=== PATIENT | male | born 1955 | race Caucasian/White ===

== ENCOUNTER 2020-09-28 13:21 | Outpatient (CLI) | payer BC, SELFPAY ==
[2020-09-28 14:21] LABS: Albumin Level 4.6 g/dL (3.5-5.1)
[2020-09-28 14:25] LABS: Hemoglobin A1C 5.4 % (<5.7)
[2020-09-28 16:13] LABS: Urine Cotinine NEGATIVE
== END 2020-09-28 13:22 | disposition home or self-care (01) ==
LOC: ANHSURGERY 13:27
PROVIDERS: PCP Nurse Practitioner Family; Visit Provider Orthopaedic Surgery
DX: Z01.812 Encounter for preprocedural laboratory examination (principal); M17.12 Unilateral primary osteoarthritis, left knee; Z51.81 Encounter for therapeutic drug level monitoring; Z79.899 Other long term (current) drug therapy
CPT/HCPCS: 80307; 82040; 83036; 86850; 86900; 86901; 87081

== ENCOUNTER 2020-10-05 02:08 | Outpatient (CLI) | payer BC, SELFPAY ==
[2020-10-05 18:46] LABS: SARS-CoV-2 RNA PCR Negative
== END 2020-10-05 02:09 | disposition home or self-care (01) ==
LOC: ANHCOVIDDT 02:08
PROVIDERS: Visit Provider Orthopaedic Surgery
DX: Z01.812 Encounter for preprocedural laboratory examination (principal); Z11.59 Encounter for screening for other viral diseases
CPT/HCPCS: 87635; C9803; U0003

== ENCOUNTER 2020-10-08 01:05 | Day surgery (SDC) | payer BC, SELFPAY ==
[2020-09-28 13:47] VITALS: BP 166/90; PULSE 64; RESP 20; TEMP 37.2; O2SAT 99; BMI 28.6
[2020-10-08] VITALS (16 sets, daily range): BP systolic 115–152; BP diastolic 70–91; PULSE 48–84; RESP 14–18; TEMP 36.3–36.8; O2SAT 95–100
--- NOTE | ~2020-10-08 | XR_ITS ---
EXAMINATION: XR knee LT 2V DATE: 10/08/2020 10:32 INDICATION: Total left knee arthroplasty. Postop. TECHNIQUE: 2 views of left knee were obtained. COMPARISON: Left knee radiograph 06/12/2020 FINDINGS: There is a total left knee arthroplasty with patellar resurfacing in near-anatomic alignmen t. No fracture. No periprosthetic lucency to suggest loosening or infection. There is gas in the soft tissues and knee joint, consistent with recent surgery. IMPRESSION: 1. Total left knee arthroplasty in near-anatomic alignment. Reviewed, dictated and finalized at location A. SORTER
--- NOTE | 2020-10-08 06:38 | P.PNAN_ITS ---
Anes - Initial Pre Proc Eval Procedure: Operation Date: 10/08/20 07:30 Proposed Procedures p Left Total Knee Arthroplasty - Asad Aburto MD Date/Time: 10/08/20 06:38 Surgeon: Asad Aburto MD Pre Op Diagnosis: Left Knee OA Patient Data Age: 65 Gender: M Height: 1.75 m Weight: 85.4 kg Last Vital Signs Temp 37.2 C 09/28/20 13:47 Pulse 64 09/28/20 13:47 Resp 20 09/28/20 13:47 BP 166/90 H 09/28/20 13:47 Pulse Ox 99 09/28/20 13:47 Allergies Allergy/AdvReac Type Severity Reaction Status Date / Time No Known Allergies Allergy Verified 10/08/20 06:28 Home Medications Medication Instructions Recorded Confirmed Type atorvastatin 10 mg tablet 10 mg PO HS 05/17/20 10/08/20 History levothyroxine 25 mcg capsule 25 mcg PO QAM 05/17/20 10/08/20 History tamsulosin 0.4 mg capsule 0.4 mg PO HS 05/17/20 10/08/20 History allopurinol 100 mg tablet 100 mg PO HS 08/28/20 10/08/20 History rivaroxaban 10 mg tablet 10 mg PO DAILY #14 tablet 10/03/20 10/08/20 Rx Patient hx anesthesia problems: none Family hx anesthesia problems: none PMFSH Past Medical History Medical History (Updated 10/08/20 @ 06:39 by Zain Subramanian DO) BMI 28.0-28.9,adult Chondrocalcinosis of knee Degenerative arthritis of knee, bilateral Gout Hyperlipidemia Hypothyroidism Osteoarthritis of left knee Family History Family History Mother Cancer Father Cancer Social History Social History Smoking status: Former smoker Second hand tobacco smoke exposure: No Additional smoking assessment comments: STATES 1PK/DAY/5YRS QUIT AGE 24 Alcohol intake: current Drinks per week: 7 Substance use: never Substance use type: does not use Living arrangements: with family 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 Gender identity (if verbalized by the patient): Male Spiritual care concerns: No Anes - Eval Final PreProcedure Day of Procedure 10/08/20 06:38 Patient weight: overweight Heart: regular rate and rhythm Lungs: clear to auscultation and normal air movement Airway: Mallampati scale class 1 Neurological: alert and oriented Last oral intake: >/= 8 hours ASA classification: II Emergent: no Anesthetic plan: proceed Anesthesia type and monitoring: regional spinal and standard monitoring Informed Consent: The patient's anesthetic plan and its attendant risks and benefits were discussed with the patient/family/POA. Questions were solicited and answers provided to the satisfaction of the patient/family/POA.
--- NOTE | 2020-10-08 06:39 | WPDANESPNB ---
Anes - Peripheral Nerve Block Date/Time: 10/08/20 06:39 I have discussed with the patient/family/POA the placement of a peripheral nerve block for post-operative pain management, including associated risks, benefits, complications, and side effects. Alternative methods of post-operative analgesia were detailed. Questions were solicited and answers provided to the satisfaction of the patient/family/POA. Time-Out: A pre-procedural Time-Out was completed immediately before starting the procedure and confirmed: Patient Identification, Site, Procedure, Patient Position and the Availability of Requisite Equipment. Clinical Indications: Acute post-operative pain management requested by the operative surgeon. Nerve Block Insertion Note Anes-nerve block: adductor canal left Patient position: supine Skin prep: chlorhexidine Needle: 22 gauge, stimulating, insulated echogenic needle. Needle length: 80 mm Technique: ultrasound Injectate: bupivacaine 0.5% with epi 5 mcg/ml (30cc) Observations: tolerated well Complications: none Procedure start time:: 722 Procedure end time:: 725
[2020-10-08] MEDS: ACETAMINOPHEN 500 MG TABLET 1000 MG PO (06:43)
[2020-10-08] MEDS: LACTATED RINGERS 1,000 ML 30 ML IV CONT ×3 (06:50→10:55)
[2020-10-08] MEDS: TRANEXAMIC ACID 1,000MG/ISO100 1,000 MG/100 ML BAG 200 MG IVPB (06:53)
--- NOTE | 2020-10-08 07:15 | WPDHPUPDATE1 ---
History and Physical Update Update Date/Time: 10/08/20 07:15 History and Physical has been reviewed, including an updated exam of the patient. There are NO changes in the patient's condition. Risks, benefits, and alternatives have been discussed and questions answered. Patient agrees to proceed with procedure.
[2020-10-08] MEDS: ceFAZolin 2 GM/D5W 50 ML 2 GM/50 ML BAG IVPB (07:46)
[2020-10-08] MEDS: BUPIVACAINE/EPINEPHRINE 0.25% 10 ML VIAL 60 ML INFILTRATE (08:11)
[2020-10-08] MEDS: TRANEXAMIC ACID 1,000 MG/10 ML AMPUL 1000 MG TOPICAL (08:12)
[2020-10-08] MEDS: GENTAMICIN BONE CEMENT REFOBACIN 1 EACH TOPICAL (08:12)
[2020-10-08] MEDS: ceFAZolin SODIUM 1 GM VIAL IV PUSH (09:30)
--- NOTE | 2020-10-08 10:11 | PM.PROC ---
Procedure Note - Detailed Date of procedure: 10/08/20 Pre-op diagnosis: Left Knee OA Post-op diagnosis: same Procedure performed: Left total knee replacement Description of procedure: The patient was identified and proper site identified. In the preop holding area the anesthesia team performed a left sub sartorial block after which the patient was taken to the operating room and transferred to the OR table positioning supine taking care to pad the torso and extremities. After spinal anesthetic was administered a nonsterile tourniquet was placed high on the left thigh. The left lower extremity was prepped and draped in the usual sterile fashion. The extremity was exsanguinated and with the knee flexed tourniquet was inflated to 300 mmHg remaining up for approximately 63 minutes. An anterior midline incision was made and a mid vastus approach was used. Infra and suprapatellar fat pads were excised. Patella was resected leaving 15 mm thickness and prepared for the size 34 round three peg component. Using the intramedullary guide the distal femur was cut in the proper orientation for the size 67.5 femoral component. Using the extramedullary guide the tibia was cut perpendicular to the long axis protecting collateral ligaments and popliteal structures. It was sized to a 71. Flexion and extension gaps were balanced. Trial reduction was undertaken and the weight-bearing line was noted to passed through the center of the joint. Proximal tibia was drilled and punched in the proper orientation for the real component. Trial components were removed. The bone surfaces were washed with pulsatile lavage and dried. The real components were cemented simultaneously. The knee was held in extension and the patella held clamped until the cement had cured. Excess cement was removed from the joint. After trialing it was determined that the 11 mm insert gave full range of motion from 0-125 degrees of flexion and the patella tracked in the femoral groove with no lift-off. After final lavage the joint the real 11 E-poly insert was placed and secured with a locking bar. A Betadine and saline wash was placed into the wound and allowed to sit for approximately 3 minutes and then evacuated. Periarticular tissues were infiltrated with 60 cc of the arthroplasty solution. 1 g of tranexamic acid was left in the wound. The extensor mechanism was repaired with #2 Vicryl suture and 0 looped PDS suture. Subcu was reapproximated with two of strata fix and tissue adhesive for the skin. A sterile dressing was applied. He tolerated the procedure well, was awakened and extubated, transferred to the bed and was taken to recovery area in stable condition. There were no known intraoperative complications. Perioperative antibiotics were administered. Anesthesia: regional and spinal Surgeon: Asad Aburto MD Twine Winder: [place] Estimated blood loss (mL): 100 Tourniquet time (min): 63 Drains: No Packing: No Pathology: none sent Complications: No immediate complications Condition: stable Disposition: PACU
[2020-10-08] MEDS: fentaNYL CITRATE INJ (*CRX) 100 MCG/2 ML VIAL 25 MCG IV PUSH ×4 (10:29→10:40)
[2020-10-08] MEDS: oxyCODONE HCL (*CRX) 5 MG TAB IR PO (11:51)
== END 2020-10-08 16:35 | disposition home or self-care (01) ==
PROVIDERS: Visit Provider Orthopaedic Surgery
PROC: (CPT 27447; principal; 2020-10-08 07:30)
DX: M17.12 Unilateral primary osteoarthritis, left knee (principal); E78.5 Hyperlipidemia, unspecified; E03.9 Hypothyroidism, unspecified; M10.9 Gout, unspecified; Z79.01 Long term (current) use of anticoagulants; Z87.891 Personal history of nicotine dependence
CPT/HCPCS: 27447; 64447; 73560; 97161; A9270; C1713; C1776; J0131; J0690; J1100; J1720; J2250; J2370; J2405; J2704; J3010; J7120

== ENCOUNTER 2020-10-19 19:26 | Day surgery (SDC) | payer BC, SELFPAY ==
--- NOTE | ~2020-10-19 | US_ITS ---
EXAMINATION: US venous doppler LE EXAM DATE: 10/20/2020 11:01 INDICATION: Left leg swelling, pain, recent sx . TECHNIQUE: Multiple grayscale, color flow and Doppler images of the right lower extremity deep venous system were obtained and reviewed. There is no prior study for comparison. FINDINGS: The right common femoral, femoral and profunda veins demonstrate normal color flow, respira tory variation, augmentation and compressibility. Compressibility, color flow confirmed within the r ight posterior tibial, peroneal, and greater saphenous veins. Popliteal vein was not evaluated, reportedly there was a surgical bandage overlying gas. IMPRESSION: No evidence of left leg DVT. Reviewed, dictated and finalized at location A. ER AND UNLOADER
--- NOTE | ~2020-10-19 | XR_ITS ---
XR knee LT min 4V 10/19/2020 20:01 Indication: Left knee pain Procedure: 4 views left knee Comparison: 10/08/2020 Findings: Large amount of prepatellar soft tissue swelling. There is a large joint effusion. No fract ure or traumatic malalignment. Prosthesis is well seated. No acute fracture or traumatic malalignment . Impression: 1: No acute fracture. 2: Large joint effusion. Large amount of prepatellar soft tissue swelling. Reviewed, dictated and finalized at location A. ASSOCIATE Impression: 1: No acute fracture. 2: Large joint effusion. Large amount of prepatellar soft tissue swelling.
[2020-10-19 19:32] VITALS: BP 159/67; PULSE 89; RESP 20; TEMP 36.6; O2SAT 100
--- NOTE | 2020-10-19 19:50 | ED.WOUNDLAC ---
HPI - Wound/Laceration General Chief Complaint: Wound/Laceration <Nilam Nye PA-C - Last Filed: 10/19/20 21:02> Stated Complaint: POST OP PAIN <JACKELYN Gordillo Last Filed: 10/19/20 21:02> Time Seen by Provider: 10/19/20 19:31 <JACKELYN Gordillo Last Filed: 10/19/20 21:02> Source: patient <JACKELYN Gordillo Last Filed: 10/19/20 21:02> Mode of arrival: wheelchair <JACKELYN Gordillo Last Filed: 10/19/20 21:02> Limitations: no limitations <JACKELYN Gordillo Last Filed: 10/19/20 21:02> History of Present Illness HPI narrative: This is a 65 year old male that presents to the ER for left knee pain. Reports he is 11 days out from a left total knee replacement. Reports he has had trouble with pain since the procedure. Reports yesterday he noted worsening swelling down into his lower leg. He has been speaking with Dr. Aburto and was told to come to the ED for further evaluation. Denies fever, chest pain or shortness of breath. <Nilam Nye PA-C - Last Filed: 10/19/20 21:02> Related Data Home Medications: Home Medications Medication Instructions Recorded Confirmed atorvastatin 10 mg tablet 10 mg PO HS 05/17/20 10/08/20 levothyroxine 25 mcg capsule 25 mcg PO QAM 05/17/20 10/08/20 tamsulosin 0.4 mg capsule 0.4 mg PO HS 05/17/20 10/08/20 allopurinol 100 mg tablet 100 mg PO HS 08/28/20 10/08/20 <JACKELYN Gordillo Last Filed: 10/19/20 21:02> Allergies/Adverse Reactions: Allergies Allergy/AdvReac Type Severity Reaction Status Date / Time No Known Allergies Allergy Verified 10/19/20 19:36 <JACKELYN Gordillo Last Filed: 10/19/20 21:02> Review of Systems Review of Systems: Narrative: CONSTITUTIONAL: Denies fever CARDIOVASCULAR: Reports edema. Denies chest pain RESPIRATORY: Denies dyspnea. MUSCULOSKELETAL: Reports joint pain, and myalgia. NEUROLOGIC: Denies numbness <Nilam Nye PA-C - Last Filed: 10/19/20 21:02> All systems reviewed & are unremarkable except as noted in HPI and below <Nilam Nye PA-C - Last Filed: 10/19/20 21:02> PMFSH Past Medical History Medical History: Medical History (Updated 10/19/20 @ 21:01 by Nilam Nye PA-C) BMI 28.0-28.9,adult Chondrocalcinosis of knee Degenerative arthritis of knee, bilateral Gout Hyperlipidemia Hypothyroidism <Nilam Nye PA-C - Last Filed: 10/19/20 21:02> Surgical History Surgical History: Surgical History (Updated 10/19/20 @ 21:01 by Nilam Nye PA-C) Osteoarthritis of left knee Left total knee replacement September 2020 <Nilam Nye PA-C - Last Filed: 10/19/20 21:02> Family History Family History: Family History Mother Cancer Father Cancer <Nilam Nye PA-C - Last Filed: 10/19/20 21:02> Social History Social History: Social History Smoking status: Former smoker Second hand tobacco smoke exposure: No Additional smoking assessment comments: STATES 1PK/DAY/5YRS QUIT AGE 24 Alcohol intake: current Drinks per week: 7 Substance use: never Substance use type: does not use 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 HEAD: Normocephalic, atraumatic. EYES: EOMI. CHEST: Clear to auscultation. No respiratory distress. No wheezes rales or rhonchi HEART: Regular rate and rhythm. No murmur heard. Normal peripheral pulses. EXTREMITIES: Decreased active ROM in the left knee due to pain. 1+ pitting edema of the left lower extremity from the mid morris down into the foot. Mild to moderate redness and bruising surrounding the left knee anteri
[2020-10-19 19:55] LABS: Basophils Percent Auto 0.2 % (0.2-1.2); Eosinophils Absolute Auto 0.3 K/mm3 (0-0.3); Eosinophils Percent Auto 3.2 % (0-4.4); Hematocrit 37.1 % (42.0-52.0); Hemoglobin 12.1 g/dL (14.0-18.0); Immature Granulocyte Absolute 0.06 K/mm3 (0.00-0.031); Immature Granulocyte Percent A 0.6 % (0-0.5); Lymphocytes Absolute Auto 0.79 K/mm3 (0.9-3.2); Lymphocytes Percent Auto 8.1 % (18.3-44.2); Mean Corpuscular HGB Conc 32.6 g/dl (32-36); Mean Corpuscular Hemoglobin 29.4 pg (26-34); Mean Platelet Volume 9.1 fl (7.4-10.4); Monocytes Absolute Auto 0.7 K/mm3 (0.1-0.6); Monocytes Percent Auto 7.5 % (2.6-8.5); Neutrophils Absolute Auto 7.9 K/mm3 (1.3-6.7); Neutrophils Percent Auto 80.4 % (45.5-73.1); Platelet Count Result 492 k/mm3 (150-375); Red Blood Count 4.12 M/mm3 (4.6-6.20); Red Cell Distribution Width 13.1 % (11.5-14.5); White Blood Count 9.8 K/mm3 (4.5-10.0)
[2020-10-19 20:05] LABS: INR 1.3
[2020-10-19 20:06] LABS: Partial Thromboplastin Time 43.1 SECONDS (22.3-36.8)
[2020-10-19 20:08] LABS: D Dimer 2.87 ug/mL (<0.48)
[2020-10-19] MEDS: ONDANSETRON INJ 4 MG/2 ML VIAL IV PUSH (20:11)
[2020-10-19] MEDS: MORPHINE SULFATE (*CRX) 4 MG/ML INJ IV PUSH ×2 (20:11→23:41)
[2020-10-19 20:19] LABS: Anion Gap 8 mmol/L (8-16); Blood Urea Nitrogen 22 mg/dL (9-20); Calcium 9.1 mg/dL (8.4-10.2); Carbon Dioxide 26 mmol/L (22-30); Chloride 104 mmol/L (98-107); Estimated CRCL calculation 64 ml/min; Estimated Glomerular Filt Rate > 60; Glucose 87 mg/dL (75-110); Potassium 3.8 mmol/L (3.4-5.0); Sodium 138 mmol/L (137-145)
[2020-10-19 20:21] LABS: Erythrocyte Sedimentation Rate 94 mm/hr (0-20)
[2020-10-19 20:31] LABS: CRP 12.3 mg/dL (<1.0)
[2020-10-19 21:27] VITALS: BP 150/82; PULSE 67; RESP 16; TEMP 36.8; O2SAT 97
--- NOTE | 2020-10-19 21:40 | ADMGEN ---
This patient, Jackson Lizarraga, was admitted to Medical Room 245-. Patient/family oriented to hospital policies and general routines including ID bracelet, bed and alarms, visiting hours, pain management, procedures, bathroom and other care routines, personal items, smoking policy, room service/diet, and visiting hours. Information on how to activate the Rapid Response Team has been discussed. Patient/Family are encouraged to report perceived risks to care and to ask questions if they do not understand what they are told or what they should do.
[2020-10-19 21:51] VITALS: BP 134/89; PULSE 66; RESP 16; TEMP 36.7; O2SAT 99
[2020-10-19 21:53] VITALS: BMI 28.8
[2020-10-20] VITALS (11 sets, daily range): BP systolic 121–174; BP diastolic 71–82; PULSE 67–100; RESP 14–26; TEMP 36.2–36.7; O2SAT 95–100
--- NOTE | 2020-10-20 07:12 | WPDHPUPDATE1 ---
History and Physical Update Update Date/Time: 10/20/20 07:12 65-year-old male who is 12 days status post left total knee replacement. He has got a postoperative hematoma which is causing him quite a bit of discomfort. He is going to be brought to the OR for washout of the hematoma, proceeding as indicated. His lab indices are not suggestive of infection at this point. His main complaint is pain and swelling in the right knee. The knee is ecchymotic with intra-articular and prepatellar swelling consistent with hematoma. Risks and potential complications were discussed in detail and questions answered. Plan on proceeding this morning.
--- NOTE | 2020-10-20 07:27 | WPDANESEPP ---
Anes - Eval Pre Procedure Procedure: Operation Date: 10/20/20 07:30 Proposed Procedures p Total Knee Arthroplasty - Asad Aburto MD Date/Time: 10/20/20 07:27 Surgeon: Gage Aburto MD Pre Op Diagnosis: S/p left knee total arthroplasty, Patient Data Age: 65 Gender: M Height: 1.75 m Weight: 88.7 kg Last Vital Signs Temp 36.7 C 10/20/20 06:00 Pulse 72 10/20/20 06:00 Resp 18 10/20/20 06:00 BP 121/74 10/20/20 06:00 Pulse Ox 99 10/20/20 06:00 Allergies Allergy/AdvReac Type Severity Reaction Status Date / Time No Known Allergies Allergy Verified 10/19/20 21:40 Home Medications Medication Instructions Recorded Confirmed Type atorvastatin 10 mg tablet 10 mg PO HS 05/17/20 10/19/20 History levothyroxine 25 mcg capsule 25 mcg PO QAM 05/17/20 10/19/20 History tamsulosin 0.4 mg capsule 0.4 mg PO HS 05/17/20 10/19/20 History allopurinol 100 mg tablet 100 mg PO HS 08/28/20 10/19/20 History rivaroxaban 10 mg tablet 10 mg PO DAILY #14 tablet 10/03/20 10/19/20 Rx cephalexin [Keflex] 1,000 mg PO Q8H #4 cap 10/08/20 10/19/20 Rx oxycodone [Roxicodone] 5 mg PO Q4H PRN #42 tablet 10/08/20 10/19/20 Rx cyclobenzaprine 10 mg tablet 10 mg PO TID PRN #20 tablet 10/14/20 10/19/20 Rx tapentadol 50 mg tablet 50 mg PO Q6H PRN #30 tablet 10/15/20 10/19/20 Rx Laboratory Tests 10/19/20 10/19/20 10/19/20 19:43 19:43 19:43 WBC 9.8 K/mm3 K/mm3 (4.5-10.0) RBC 4.12 M/mm3 L M/mm3 (4.6-6.20) Hgb 12.1 g/dL L g/dL (14.0-18.0) Hct 37.1 % L % (42.0-52.0) MCV 90.0 fl fl (80-100) MCH 29.4 pg pg (26-34) MCHC 32.6 g/dl g/dl (32-36) RDW 13.1 % % (11.5-14.5) Plt Count 492 k/mm3 H k/mm3 (150-375) MPV 9.1 fl fl (7.4-10.4) Immature Gran % (Auto) 0.6 % H % (0-0.5) Neut % (Auto) 80.4 % H % (45.5-73.1) Lymph % (Auto) 8.1 % L % (18.3-44.2) Noble % (Auto) 7.5 % % (2.6-8.5) Eos % (Auto) 3.2 % % (0-4.4) Baso % (Auto) 0.2 % % (0.2-1.2) Lymph # (Auto) 0.79 K/mm3 L K/mm3 (0.9-3.2) Noble # (Auto) 0.7 K/mm3 H K/mm3 (0.1-0.6) Eos # (Auto) 0.3 K/mm3 K/mm3 (0-0.3) Baso # (Auto) 0.0 K/mm3 K/mm3 (0.0-0.1) Abs Immat Gran (auto) 0.06 K/mm3 H K/mm3 (0.00-0.031) Absolute Neuts (auto) 7.9 K/mm3 H K/mm3 (1.3-6.7) Absolute Nucleated RBC 0.0 K/mm3 K/mm3 (0.0-0.012) Nucleated RBC % 0.0 % % (0.0-0.2) ESR 94 mm/hr H mm/hr (0-20) PT 17.0 Seconds H Seconds (11.1-14.7) INR 1.3 APTT 43.1 SECONDS H SECONDS (22.3-36.8) D-Dimer 2.87 ug/mL H ug/mL (<0.48) Sodium 138 mmol/L mmol/L (137-145) Potassium 3.8 mmol/L mmol/L (3.4-5.0) Chloride 104 mmol/L mmol/L (98-107) Carbon Dioxide 26 mmol/L mmol/L (22-30) Anion Gap 8 mmol/L mmol/L (8-16) BUN 22 mg/dL H mg/dL (9-20) Creatinine 1.00 mg/dL mg/dL (0.7-1.3) Estim Creat Clear Calc 64 ml/min ml/min Estimated GFR > 60 (59 - ) Glucose 87 mg/dL mg/dL (75-110) Calcium 9.1 mg/dL mg/dL (8.4-10.2) C-Reactive Protein 12.3 mg/dL H mg/dL (<1.0) Patient hx anesthesia problems: none Family hx anesthesia problems: none [facility] Past Medical History Medical History BMI 28.0-28.9,adult Chondrocalcinosis of knee Degenerative arthritis of knee, bilateral Gout Hyperlipidemia Hypothyroidism Surgical History Surgical History Osteoarthritis of left knee Left total knee replacement September 2020 Family History Family History Mother Cancer Father Cancer Social History Social History (Revie
--- NOTE | 2020-10-20 07:37 | WPDANESEFPP ---
Anes - Eval Final PreProcedure Day of Procedure 10/20/20 07:37 Patient weight: normal Heart: regular rate and rhythm Lungs: clear to auscultation Airway: Mallampati scale class 1 Neurological: alert and oriented ASA classification: II Emergent: no Anesthetic plan: proceed Anesthesia type and monitoring: general LMA and standard monitoring Informed Consent: The patient's anesthetic plan and its attendant risks and benefits were discussed with the patient/family/POA. Questions were solicited and answers provided to the satisfaction of the patient/family/POA.
[2020-10-20] MEDS: ceFAZolin 2 GM/D5W 50 ML 2 GM/50 ML BAG IVPB ×2 (08:07→12:30)
[2020-10-20] MEDS: TRANEXAMIC ACID 1,000 MG/10 ML AMPUL 1000 MG TOPICAL (08:16)
[2020-10-20] MEDS: BUPIVACAINE/EPINEPHRINE 0.25% 10 ML VIAL 60 ML INFILTRATE (08:17)
[2020-10-20] MEDS: LACTATED RINGERS 1,000 ML 30 ML IV CONT (08:58)
--- NOTE | 2020-10-20 09:02 | P.OP_ITS ---
Procedure Note - Detailed Date of procedure: 10/20/20 Pre-op diagnosis: S/p left knee total arthroplasty, Postoperative hematoma status post left total knee replacement Post-op diagnosis: same (Prepatellar) Procedure performed: Washout left knee prepatellar hematoma with primary closure. Closed manipulation left knee. Description of procedure: The patient was identified and proper site identified. He was taken back to the operating room and transferred to the or table placing him supine taking care to pad his torso and extremities. After general anesthetic induction and intubation, a nonsterile tourniquet was placed high the left thigh. Left knee was examined more fully. Range of motion was from just shy of full extension to about 45? of flexion [place] resistance was met. After a gentle manipulation, range of motion was from 0 to 115? of flexion. The left lower extremity was prepped and draped in the usual sterile fashion. Using sterile technique a large-bore needle was introduced into the suprapatellar pouch and nothing was able to be aspirated. The prepatellar area was also aspirated removing bloody fluid. The extremity was gravity exsanguinated and with the knee flexed tourniquet inflated to 300 mmHg remaining up for about 6 minutes. Anterior incision was used utilizing the prior scar. Suture material was removed from the incision. The space had an abundance of coagulated hematoma which was removed. The arthrotomy incision was examined and noted to be intact. The knee was again taken through range of motion and there is no expression of fluid from the deep space into the subcutaneous space indicating true separation. The tourniquet was released. Hemostasis was carried out. The wound was irrigated with Betadine and saline solution along with pulsatile lavage with saline on a low setting using a total of 2 L. 60 cc of 0.25% Marcaine and epinephrine solution was infiltrated into the subcutaneous tissue circumferentially about the incision making sure not to get it to superficial. Surgicel powder was sprinkled into the wound. The skin is reapproximated with four 0 Monocryl and three 0 nylon interrupted sutures. A sterile dressing was applied. He tolerated the procedure well, was awakened, extubated and taken to recovery area in stable condition. Were no known intraoperative complications. He did receive perioperative antibiotics. Estimated blood loss was about 30 mL, along with the coagulated subcutaneous hematoma. [facility] Surgeon: Asad Aburto MD Hadoop Java Developer: James Conroy Estimated blood loss (mL): 30 Tourniquet time (min): 6 Drains: No Packing: No Pathology: none sent Complications: No immediate complications Condition: stable Disposition: PACU
[2020-10-20] MEDS: fentaNYL CITRATE INJ (*CRX) 100 MCG/2 ML VIAL 25 MCG IV PUSH ×5 (09:12→09:33)
[2020-10-20] MEDS: oxyCODONE HCL (*CRX) 5 MG TAB IR PO (11:04)
[2020-10-20] MEDS: KETOROLAC 15 MG/ML VIAL (*BKC) IV PUSH (12:30)
--- NOTE | 2020-10-20 14:40 | PC.NURSE ---
Returned from OR per bed. Report received from DOM Latham.
== END 2020-10-20 15:58 | disposition home or self-care (01) ==
LOC: ANHED 21:08 → ANH2MED 21:58 → ANHSURGERY 10-22 13:08 → ANH2MED 10-22 13:08
PROVIDERS: Physician Assistant; Emergency Provider Emergency Medicine; Visit Provider Orthopaedic Surgery
PROC: (CPT 27447; principal; 2020-10-20 07:30)
DX: L76.32 Postprocedural hematoma of skin and subcutaneous tissue following other procedure (principal); M79.89 Other specified soft tissue disorders; Y83.8 Other surgical procedures as the cause of abnormal reaction of the patient, or of later complication, without mention of misadventure at the time of the procedure; Z96.652 Presence of left artificial knee joint; E78.5 Hyperlipidemia, unspecified; E03.9 Hypothyroidism, unspecified; M10.9 Gout, unspecified; Z87.891 Personal history of nicotine dependence; Z79.01 Long term (current) use of anticoagulants; Z79.891 Long term (current) use of opiate analgesic
CPT/HCPCS: 10140; 36415; 73564; 80048; 85025; 85380; 85610; 85652; 85730; 86140; 93971; 96374; 96375; 97110; 97161; 99285; A9270; J0131; J0690; J1100; J1885; J2250; J2270; J2405; J2704; J3010; J7120

== ENCOUNTER 2025-03-15 12:25 | Outpatient (CLI) | payer MEDICARE, OTHER, SELFPAY ==
--- NOTE | ~2025-03-15 | XR_ITS ---
XR shoulder RT min 2V Ordering provider: Chepe Mitchlel MD History: . M25.511 - Pain in right shoulder . Comparison: None. FINDINGS: BONES: No acute fracture or dislocation. Degenerative changes in the area of the greater tuberosity. JOINT SPACES: The acromioclavicular joint is normal. The glenohumeral joint is normal. SOFT TISSUES: Normal. IMPRESSION: No acute osseous abnormality right shoulder. Degenerative changes of the greater tuberosity of the humerus which may indicate rotator cuff disease . Reviewed, dictated and finalized at location A. IMPRESSION: No acute osseous abnormality right shoulder. Degenerative changes of the greater tuberosity of the humerus which may indicat e rotator cuff disease.
== END 2025-03-15 12:26 | disposition home or self-care (01) ==
PROVIDERS: PCP Nurse Practitioner Family; Visit Provider Orthopaedic Surgery
DX: M25.511 Pain in right shoulder (principal)
CPT/HCPCS: 73030